=== PATIENT | male | born 1995 | race Asian ===

== ENCOUNTER 2018-10-25 10:24 | Emergency (ER) | payer MEDICAID ==
[~2018-10-25] VITALS: Ht 177.8 cm; Wt 81.8 kg
[2018-10-25 10:28] VITALS: BP 141/97
== END 2018-10-25 12:49 | disposition home or self-care (01) ==
LOC: EMS 10:26
DX: S63.094A Other dislocation of right wrist and hand, initial encounter (principal); W18.39XA Other fall on same level, initial encounter; Y93.67 Activity, basketball; Y92.39 Other specified sports and athletic area as the place of occurrence of the external cause; Y99.8 Other external cause status